=== PATIENT | female | born 1995 | race Caucasian/White ===

== ENCOUNTER 2019-12-06 14:04 | Emergency (ER) | payer BC, OTHER ==
[~2019-12-06] VITALS: Ht 170.2 cm; Wt 105.0 kg
[~2019-12-06 14:04] MED LIST: IBUP-1222 PO; OXYC-302 PO; PREN1TAB60 PO
[2019-12-06 14:26] LABS: BASOPHILS % (AUTO) 1 % (0-1); EOSINOPHILS % (AUTO) 1 % (1-7); LYMPHOCYTES % (AUTO) 13 % (22-44); MEAN CORPUSCULAR HEMOGLOBIN 29.4 pg (27.0-34.8); MEAN CORPUSCULAR HGB CONC 33.3 g/dL (32.4-35.8); MEAN PLATELET VOLUME 7.4 fL (7.4-10.4); MONOCYTES % (AUTO) 6 % (2-9); NEUTROPHILS % (AUTO) 79 % (42-75); PLATELET COUNT 300 x10^3/uL (130-400); RED BLOOD COUNT 5.17 x10^6/uL (3.82-5.3); RED CELL DISTRIBUTION WIDTH 13.7 % (9.6-15.2)
[2019-12-06 14:29] LABS: MD NO
[2019-12-06] MEDS ORDERED: PLEASE ENTER HEIGHT AND WEIGHT MC SCH (14:30)
[2019-12-06] MEDS ORDERED: SODIUM CHLORIDE FLUSH 10ML SYR IVF ONE (14:30)
[2019-12-06 14:36] LABS: ALANINE AMINOTRANSFERASE 29 U/L (12-78); ALBUMIN 4.1 g/dL (3.4-5.0); ANION GAP 5 mmol/L (5-15); CALCIUM 9.2 mg/dL (8.5-10.1); CHLORIDE 105 mmol/L (98-107); CREATININE 0.71 mg/dL (0.55-1.02)
[2019-12-06 14:41] LABS: ALKALINE PHOSPHATASE 104 U/L (45-117); BILIRUBIN,TOTAL 0.5 mg/dL (0.2-1.0); TOTAL PROTEIN 8.1 g/dL (6.4-8.2)
[2019-12-06 15:11] LABS: MICROSCOPIC NOT IND
[2019-12-06] MEDS ORDERED: OMNIPAQUE 350 MG/ML, 100ML BOTTLE ONE ×2 (15:22→15:29)
[2019-12-06] MEDS ORDERED: KETOROLAC 30 MG/1 ML ONE (15:52)
--- NOTE | 2019-12-06 15:58 | NUR ---
MEDICATED PER MAR
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
[2019-12-06] MEDS ORDERED: KETOROLAC 30 MG/1 ML IVPush ONE (16:00)
--- NOTE | 2019-12-06 16:01 | NUR ---
PT STATING PAIN IS 6/10.
--- NOTE | 2019-12-06 16:17 | NUR ---
PT AMBULATED TO BATHROOM. PT STATES PAIN INCREASED FROM 4/10 TO 6/10.
--- NOTE | 2019-12-06 16:18 | NUR ---
PT GAIT STEADY. PT DENIES ANY SOB OR DIZZINESS.
[2019-12-06 16:53] VITALS: BP 120/69
--- NOTE | 2019-12-06 17:02 | NUR ---
PT AND PT FAMILY REC'VD DISCHARGE INSTRUCTIONS AND EDUCATION. PT AND PT FAMILY HAD NO FURTHER QUESTIONS. PT AMBULATED TO DISCHARGE AREA, STEADY GAIT.
== END 2019-12-06 17:05 | disposition home or self-care (01) ==
LOC: ED 14:41
DX: S33.5XXA Sprain of ligaments of lumbar spine, initial encounter (principal); S20.219A Contusion of unspecified front wall of thorax, initial encounter; S30.1XXA Contusion of abdominal wall, initial encounter; V43.52XA Car driver injured in collision with other type car in traffic accident, initial encounter; Y93.89 Activity, other specified; Y92.488 Other paved roadways as the place of occurrence of the external cause; Y99.8 Other external cause status
CPT/HCPCS: 36415; 71260; 72131; 72170; 74177; 80053; 81003; 83690; 84703; 85025; 96374; 99285; J1885; Q9967